=== PATIENT | male | born 1975 | race Caucasian/White ===

== ENCOUNTER 2017-03-27 20:46 | Emergency (ER) | payer OTHER ==
[~2017-03-27] VITALS: Ht 185.4 cm; Wt 83.9 kg
[~2017-03-27 20:46] MED LIST: BUPROPION; CYMBALTA20 MG PO
[2017-03-27] MEDS ORDERED: ROXICODONE5 M2 PO (20:54)
[2017-03-27] MEDS ORDERED: IBUPROFEN 800800 M1 PO (23:04)
[2017-03-27 23:10] VITALS: BP 109/64
== END 2017-03-27 23:18 | disposition home or self-care (01) ==
LOC: ER 20:46
DX: S39.012A Strain of muscle, fascia and tendon of lower back, initial encounter (principal); S16.1XXA Strain of muscle, fascia and tendon at neck level, initial encounter; S91.105A Unspecified open wound of left lesser toe(s) without damage to nail, initial encounter; F17.210 Nicotine dependence, cigarettes, uncomplicated; F10.99 Alcohol use, unspecified with unspecified alcohol-induced disorder; Z88.5 Allergy status to narcotic agent; W01.0XXA Fall on same level from slipping, tripping and stumbling without subsequent striking against object, initial encounter; Y93.01 Activity, walking, marching and hiking; Y92.828 Other wilderness area as the place of occurrence of the external cause; Y99.8 Other external cause status

== ENCOUNTER 2019-08-18 18:34 | Emergency (ER) | payer OTHER ==
[~2019-08-18] VITALS: Ht 185.4 cm; Wt 77.1 kg
[~2019-08-18 18:34] MED LIST changes: +IBUPROFEN 800800 M1 PO; +ROXICODONE5 M2 PO
[2019-08-18 20:09] VITALS: BP 115/66
[2019-08-18 20:11] LABS: ABSOLUTE NEUTROPHILS 3.2 thou/uL (1.4-8.2); HEMATOCRIT 37.2 % (42.0-52.0); HEMOGLOBIN 12.6 gm/dL (14.0-18.0); LYMPHOCYTES 32.7 % (24.0-44.0); MCH 30.9 pg (26.0-34.0); MCV 90.9 fL (80.0-100.0); MONOCYTES 10.6 % (1.0-8.0); PLATELET COUNT 265 thou/uL (150-400); POLYS 50.7 % (36.0-66.0); RBC 4.09 mil/uL (4.50-6.00); RDW 13.3 % (10.5-14.5); WBC 6.2 thou/uL (4.0-11.0)
[2019-08-18 20:19] LABS: CALCIUM 8.9 mg/dL (8.5-10.1); POTASSIUM 3.6 mmol/L (3.5-5.1)
== END 2019-08-18 21:35 | disposition home or self-care (01) ==
LOC: ER 18:34
PROVIDERS: Emergency Medicine
DX: B34.9 Viral infection, unspecified (principal); F17.210 Nicotine dependence, cigarettes, uncomplicated; Z88.5 Allergy status to narcotic agent; Z86.19 Personal history of other infectious and parasitic diseases